=== PATIENT | male | born 1970 | race Caucasian/White ===

== ENCOUNTER 2017-05-24 10:52 | Day surgery (SDC) | payer MEDICAID ==
[2017-05-24] MEDS ORDERED: lortab PO (11:20)
[2017-05-24] MEDS ORDERED: METO25TA3 PO (11:20)
[2017-05-24] MEDS ORDERED: APIX5TAB PO (11:20)
[2017-05-24] MEDS ORDERED: LEVO25TA4 PO (11:20)
[2017-05-24] MEDS ORDERED: OMEP20TA93 PO (11:20)
[2017-05-24] MEDS ORDERED: CHLORHEXIDINE GLUCONATE 2 % 1 PACK (2 CLOTHS) TOPICAL PRN (11:45)
[2017-05-24] MEDS ORDERED: LACTATED RINGER'S 1000 ML IV PRN (11:45)
[2017-05-24] MEDS ORDERED: SODIUM CHLORID 0.9% 500 ML IV PRN (11:45)
[2017-05-24] MEDS ORDERED: POVIDONE IODINE 5% (ANTISEPSIS KIT) 4 APPLICATIONS EACH NARE PRN (11:45)
[2017-05-24] MEDS ORDERED: METOPROLOL TARTRATE 25 MG TAB PO PRN (11:45)
--- NOTE | 2017-05-24 21:53 | MR ---
cc: ESTUARDO RODRIGUES MD DATE: 05/24/2017 INDICATION Atrial fibrillation. PROCEDURE PERFORMED DC cardioversion. DETAILS OF THE PROCEDURE After the patient was sedated by anesthesia, a 200 joule biphasic shock was delivered on two occasions and converted the patient to sinus rhythm. The patient remained stable and was discharged home in stable condition. DIAGNOSIS Successful cardioversion of atrial fibrillation. DISPOSITION Mr. Mcmullen will continue his current medical program including anticoagulation with Eliquis. I will see him back for followup in our office after discharge. Estuardo Rodrigues MD OQ/GIOVANNI /3:38 PM /9:34 PM MTDD
--- NOTE | 2017-05-25 10:20 | EKG ---
Date Performed: 05/24/2017 Time Performed: 14:17:04 PTAGE: 47 years EKG: Sinus rhythm rSr'(V1) - probable normal variant Normal ECG PREVIOUS TRACING : 05/24/2017 11.27 DOCTOR: Duke Manley Interpretating Date/Time 05/25/2017 10:19:24
--- NOTE | 2017-05-25 11:09 | EKG ---
Date Performed: 05/24/2017 Time Performed: 11:27:42 PTAGE: 47 years EKG: Atrial fibrillation Lead(s) unsuitable for analysis: V2 rSr'(V1) - probable normal variant Anterolateral ST elevation - possible early repolarization Abnormal ECG NO PREVIOUS TRACING DOCTOR: Duke Manley Interpretating Date/Time 05/25/2017 11:08:42
== END 2017-05-24 15:00 | disposition home or self-care (01) ==
LOC: HDOC 10:52 → HDIC 10:56 → HDOC 15:00
PROVIDERS: ATTEND Internal Medicine Interventional Cardiology
DX: I48.0 Paroxysmal atrial fibrillation (principal); I20.9 Angina pectoris, unspecified; I36.1 Nonrheumatic tricuspid (valve) insufficiency; I34.0 Nonrheumatic mitral (valve) insufficiency; Z72.0 Tobacco use
CPT/HCPCS: 92960; 93005